=== PATIENT | male | born 1985 | race Caucasian/White ===

== ENCOUNTER 2016-07-16 00:10 | Inpatient (IN) | payer MEDICAID ==
[2016-07-16 03:54] VITALS: BP 120/67
[2016-07-16] MEDS ORDERED: D5-0.9%NS 1,000 ML IV SCH (04:15)
[2016-07-16 05:31] LABS: % BASOPHILS 0.3 % (0.0-2.0); % EOSINOPHILS 3.9 % (0.0-5.0); % LYMPHOCYTES 18.4 % (20.0-50.0); % MONOCYTES 7.5 % (2.0-10.0); % NEUTROPHILS 69.9 % (40.0-80.0); HEMATOCRIT 40.9 % (39.0-49.0); HEMOGLOBIN 13.6 gm/dL (13.2-17.3); MEAN CELL VOLUME 88.2 fl (80-99); MEAN CORPUSCULAR HEMOGLOBIN 29.4 pg (26.0-30.0); MEAN CORPUSCULAR HGB CONC 33.3 pg (28.0-36.0); MEAN PLATELET VOLUME 8.6 fl; NEUTROPHILE ABSOLUTE 6.1 Th/cmm (1.8-8.0); PLATELET COUNT 197 Th/cmm (150-400); RED BLOOD COUNT 4.64 Mil/cmm (4.30-5.70); RED CELL DISTRIBUTION WIDTH 12.5 % (11.5-20.0); WHITE BLOOD COUNT 8.7 Th/cmm (4.8-10.8)
[2016-07-16 05:53] LABS: ALB/GLOB RATIO 1.4 (1.0-1.8); ALKALINE PHOSPHATASE 70 U/L (34-104); ANION GAP 4.9 (7.0-16.0); BILIRUBIN,TOTAL 1.1 mg/dL (0.3-1.0); BUN - UREA NITROGEN 17 mg/dL (7-25); BUN/CREATININE RATIO 18.9; CALCIUM SERUM 9.5 mg/dL (8.6-10.3); CARBON DIOXIDE 27.7 mEq/L (21.0-31.0); CHLORIDE 105 mEq/L (98-107); CREATININE - SERUM 0.9 mg/dL (0.7-1.3); GLUCOSE 113 mg/dL (70-105); POTASSIUM SERUM 3.6 mEq/L (3.5-5.1); SGOT 16 U/L (13-39); SGPT/ALT 15 U/L (7-52); SODIUM SERUM 134 mEq/L (136-145)
[2016-07-16 05:57] LABS: INR 1.09 (0.5-1.4); PROTHROMBIN TIME (TEST) 10.9 SECONDS (9.5-11.5)
[2016-07-16] MEDS ORDERED: Morphine Sulfate 2 mg/mL 1mL Syr IVP PRN (06:33)
[2016-07-16] MEDS ORDERED: Meperidine 50 mg/mL 1mL Syr ONE (07:59)
[2016-07-16] MEDS ORDERED: Midazolam 1mg/ml 2 ml vial IV ONE (07:59)
[2016-07-16] MEDS ORDERED: Bupivacaine 0.25% W/Ep 10 mL Vial ONE (08:45)
[2016-07-16] MEDS ORDERED: Neostigmine 10mg/10mL Vial ONE (08:47)
[2016-07-16] MEDS ORDERED: Meperidine 25 mg/mL 1mL Syr IVP PRN (09:25)
[2016-07-16] MEDS ORDERED: Lactated Ringer 1,000 ML IV SCH (09:30)
[2016-07-16] MEDS ORDERED: Meperidine 25 mg/mL 1mL Syr ONE ×2 (09:32→09:52)
--- NOTE | 2016-07-16 10:53 | Operative Report ---
PREOPERATIVE DIAGNOSES: 1. Acute appendicitis. 2. Compulsive obsessive disorder. POSTOPERATIVE DIAGNOSES: 1. Acute appendicitis. 2. Compulsive obsessive disorder. OPERATION DONE: Laparoscopic appendectomy. SURGEON: Maulik Jones M.D. ANESTHESIA: General. ANESTHESIOLOGIST: Chandra Matias M.D. INDICATIONS FOR SURGERY: Abdominal pain x [address] scan showing acute appendicitis. So examination also confirms this. Informed consent discussed with the patient regarding the possibility of complications including infection, bleeding, postoperative adhesions, abscess, complications from anesthesia, DVT, etc. The patient understands. OPERATIVE FINDINGS: Inflamed appendix with no perforation. ESTIMATED BLOOD LOSS: 2 mL. DESCRIPTION OF PROCEDURE: The patient was given general anesthesia. The abdomen was prepped with ChloraPrep and draped in appropriate manner. An infraumbilical incision was made along the skin line. A Veress needle was inserted. Insufflation of CO2 was carried successfully. A Veress needle was inserted. Insufflation of CO2 was carried out successfully. A 10 mm trocar was placed over this. The scope was introduced. There was good visualization of the intra-abdominal cavity. HISTORY OF PRESENT ILLNESS: A 5 mm trocar was placed in the lower abdomen at the midline and another 12 mm trocar was placed in the left flank. The operating table was lowered at the head and turned to the left side. The appendix was easily identified and was found to the inflamed, but with no perforation. The mesoappendix was serially transected utilizing EnSeal with good hemostasis. The base of the appendix was reached. GI instrument was then used to transect the appendix at the base. Following this, the staple line was identified and no bleeding site was noted. The appendix was removed in Endobag. The trocar sites were injected with 0.5% Marcaine with epinephrine and the incision was closed with mercedes, except on the left flank incision. Some oozing was controlled with 3-0 nylon. The patient tolerated the procedure well. [facility]# [id number]
--- NOTE | 2016-07-16 11:22 | Consultation ---
REFERRING PHYSICIAN: Dr. Huerta. REASON FOR CONSULTATION: Abdominal pain. Thank you for referring this patient to me. HISTORY OF PRESENT ILLNESS: This is a 30-year-old male who started having abdominal pain yesterday morning. In the afternoon, it became worse and because of the increasing pain, he went to [facility] Emergency Room. The WBC there was elevated at 15,000. The CT scan of the abdomen showed findings consistent with acute appendicitis. For insurance reason, the patient came to this facility. PAST MEDICAL HISTORY: He has had a diagnosis of compulsive disorder at age 14 and takes Prozac for this and Abilify. PHYSICAL EXAMINATION: Abdomen shows severe tenderness in the right lower quadrant with rebound. Peristalsis is decreased. IMPRESSION: Acute appendicitis. PLAN: Laparoscopic versus open appendectomy. Informed consent discussed with the patient and he understands the risks and complications associated with the operation and postoperative course. [facility]# [id number]
[2016-07-16] MEDS ORDERED: Albuterol Nebulizer 2.5mg/3mL IH PRN (16:16)
[2016-07-16] MEDS ORDERED: guaiFENesin 200 MG/10 ML UDC PO PRN (16:16)
[2016-07-16] MEDS ORDERED: Maalox 30 mL Cup PO PRN (16:16)
[2016-07-16] MEDS ORDERED: Ipratropium Neb 0.5 mg/2.5 mL UD IH PRN (16:16)
[2016-07-16] MEDS ORDERED: D5-0.45NS 1,000 ML IV SCH (16:30)
--- NOTE | 2016-07-16 17:15 | Internal Medicine Prog Note ---
Internal Medicine Subjective - Subjective Service Date: 07/16/16 ([id number]) Internal Medicine Objective - Results Result Diagrams: 07/16/16 05:23 07/16/16 05:23 Recent Labs: Laboratory Last Values WBC 8.7 Th/cmm (4.8-10.8) 07/16/16 05:23 RBC 4.64 Mil/cmm (4.30-5.70) 07/16/16 05:23 Hgb 13.6 gm/dL (13.2-17.3) 07/16/16 05:23 Hct 40.9 % (39.0-49.0) 07/16/16 05:23 MCV 88.2 fl (80-99) 07/16/16 05:23 MCH 29.4 pg (26.0-30.0) 07/16/16 05:23 MCHC Differential 33.3 pg (28.0-36.0) 07/16/16 05:23 RDW 12.5 % (11.5-20.0) 07/16/16 05:23 Plt Count 197 Th/cmm (150-400) 07/16/16 05:23 MPV 8.6 fl 07/16/16 05:23 Neutrophils % 69.9 % (40.0-80.0) 07/16/16 05:23 Lymphocytes % 18.4 % (20.0-50.0) L 07/16/16 05:23 Monocytes % 7.5 % (2.0-10.0) 07/16/16 05:23 Eosinophils % 3.9 % (0.0-5.0) 07/16/16 05:23 Basophils % 0.3 % (0.0-2.0) 07/16/16 05:23 PT 10.9 SECONDS (9.5-11.5) 07/16/16 05:23 INR 1.09 (0.5-1.4) 07/16/16 05:23 PTT (Actin FS) 26.5 SECONDS (26.0-38.0) 07/16/16 05:23 Sodium 134 mEq/L (136-145) L 07/16/16 05:23 Potassium 3.6 mEq/L (3.5-5.1) 07/16/16 05:23 Chloride 105 mEq/L (98-107) 07/16/16 05:23 Carbon Dioxide 27.7 mEq/L (21.0-31.0) 07/16/16 05:23 Anion Gap 4.9 (7.0-16.0) L 07/16/16 05:23 BUN 17 mg/dL (7-25) 07/16/16 05:23 Creatinine 0.9 mg/dL (0.7-1.3) 07/16/16 05:23 Est GFR ( Amer) > 60.0 ml/min 07/16/16 05:23 Est GFR (Non-Af Amer) > 60.0 ml/min 07/16/16 05:23 BUN/Creatinine Ratio 18.9 07/16/16 05:23 Glucose 113 mg/dL (70-105) H 07/16/16 05:23 Calcium 9.5 mg/dL (8.6-10.3) 07/16/16 05:23 Total Bilirubin 1.1 mg/dL (0.3-1.0) H 07/16/16 05:23 AST 16 U/L (13-39) 07/16/16 05:23 ALT 15 U/L (7-52) 07/16/16 05:23 Alkaline Phosphatase 70 U/L (34-104) 07/16/16 05:23 Total Protein 6.8 gm/dL (6.0-8.3) 07/16/16 05:23 Albumin 4.0 gm/dL (4.2-5.5) L 07/16/16 05:23 Globulin 2.8 gm/dL 07/16/16 05:23 Albumin/Globulin Ratio 1.4 (1.0-1.8) 07/16/16 05:23 - Physical Exam Vitals and I&O: Vital Signs Temp 97.6 F 07/16/16 15:56 Pulse 72 07/16/16 17:03 Resp 17 07/16/16 17:05 BP 114/54 07/16/16 15:56 Pulse Ox 99 07/16/16 17:03 Intake & Output 07/15/16 07/16/16 07/16/16 18:59 06:59 18:59 Intake Total 100 Balance 100 Weight (lbs) 182 lb Intake: Intake, IV Amount 100 Piperacillin Sodium/ 100 Tazobact 4.5 gm In Sodium Chloride 0.9% 100 ml @ 100 mls/hr IV Q8H [facility] Rx# :[id number] Active Medications: Current Medications Acetaminophen (Tylenol) 650 mg PO Q4HR PRN PRN Reason: Pain or Fever >101 Stop: 09/14/16 16:15 Al Hydrox/Mg Hydrox/Simethicone (Maalox) 30 ml PO Q6HR PRN PRN Reason: Constipation Stop: 09/14/16 16:15 Albuterol Sulfate (Albuterol 2.5mg/3ml Neb Ud) 2.5 mg IH Q2HR PRN PRN Reason: Shortness of Breath or Wheeze Stop: 09/14/16 16:15 Aripiprazole (Abilify) 15 mg PO DAILY AP PRN Reason: Protocol Stop: 09/15/16 08:59 Fluoxetine HCl (Prozac) 80 mg PO DAILY AP Stop: 09/15/16 08:59 Guaifenesin (Robitussin) 200 mg PO Q4HR PRN PRN Reason: Cough or Congestion Stop: 09/14/16 16:15 Dextrose/Sodium Chloride (D5-0.9%Ns) 1,000 mls @ 100 mls/hr IV .Q10H [facility] Stop: 09/14/16 04:14 Last Admin: 07/16/16 04:53 Dose: 100 mls/hr Piperacillin Sod/Tazobactam (Sod 4.5 gm/ Sodium Chloride) 100 mls @ 100 mls/hr IV Q8H [facility] Stop: 09/14/16 07:29 Last Infusion: 07/16/16 12:20 Dose: Infused Lactated Ringer's (Lactated Ringer) 1,000 mls @ 0 mls/hr IV .Q0M AP PRN Reason: TKO Stop: 07/17/16 09:29 Dextrose/Sodium Chloride (D5-0.45ns) 1,000 mls @ 100 mls/hr IV .Q10H AP Stop: 09/14/16 16:29 Ipratropium Ruffin (Atrovent Neb 0.5mg/2.5ml) 0.5 mg IH Q2HR PRN PRN Reason: Shortness of Breath or Wheeze Stop: 09/14/16 16:15 Meclizine HCl (Antivert) 25 mg PO DAILY PRN PRN Reason: Nausea / Vomiting Stop: 09/14/16 16:15 Meperidine HCl (Demerol) 25 mg IVP UD PRN PRN Reason: POST-OP PAIN Stop: 07/17/16 09:24 Morphine Sulfate (Morphine) 2 mg IVP Q4HR PRN PRN Reason: Pain (Moderate) Stop: 09/14/16 06:32 Ondansetron HCl (Zofran) 4 mg IV Q8H PRN PRN Reason: Nausea / Vomiting Stop: 09/14/16 16:15 Pantoprazole Sodium (Protonix) 40 mg PO BID AP Stop: 09/14/16 16:59 Zolpidem Tartrate (Ambien) 10 mg PO HS PRN PRN Reason: Insomnia Stop: 09/14/16 16:15 Internal Medicine Assmt/Plan - Assessment Assessment: ACUTE APPENDICITIS DEPRESSION
[2016-07-16] MEDS: Pantoprazole 40 mg EC Tab PO SCH (17:29)
--- NOTE | 2016-07-16 20:12 | History & Physical ---
CHIEF COMPLAINT: Abdominal pain. HISTORY OF PRESENT ILLNESS: This is a 30-year-old male who is a direct admission from [facility]. According to the patient, he has been having a 1-day history of abdominal pain associated with nausea and chills. The patient denied any fevers and denies any diarrhea. Due to insurance purposes, the patient is now here at [facility]. Apparently this morning, the patient had a laparoscopic appendectomy done by Dr. Willingham. PAST MEDICAL HISTORY: Hypercholesterolemia and depression. PAST SURGICAL HISTORY: None per the patient. ALLERGIES: No drug allergies. SOCIAL HISTORY: The patient denies any smoking, drinking or any illicit drug usage. FAMILY HISTORY: Noncontributory. REVIEW OF SYSTEMS: GENERAL: Denies any fever, any chills. CARDIOVASCULAR: Denies any chest pain. RESPIRATORY: Denies any shortness of breath. GASTROINTESTINAL: Denies any nausea, vomiting or any abdominal pain. GENITOURINARY: Denies any dysuria. All other systems are reviewed by me and are negative. PHYSICAL EXAMINATION: GENERAL: The patient is well developed, well nourished, in no acute distress. VITAL SIGNS: Temperature 97.6, heart rate 67, blood pressure 114/54, respirations 16, O2 92%. HEAD: Normocephalic, atraumatic. NECK: Supple. No mass. LUNGS: Clear bilaterally upon auscultation. HEART: Regular rate and rhythm. No murmurs, no gallops. SKIN: Intact, warm and dry to touch. ABDOMEN: Soft, nontender, nondistended. Positive bowel sounds in all 4 quadrants. LABORATORY DATA: WBC 8.7, H and H 13.6 and 40.8, platelets of 197. Sodium 134, potassium 3.6, chloride 105, carbon dioxide 27.7, BUN of 17, creatinine 0.9. ASSESSMENT: 1. Acute appendicitis. 2. Hypercholesterolemia. 3. Depression. PLAN: The patient to be admitted to the Med/Surg Unit. We will continue IV antibiotics, to monitor the patient's CBC and BMP. The patient will be on IV fluids for hydration. The patient is to use an incentive spirometer. Encourage the patient to ambulate. Pain management as needed. We will continue to monitor the patient. JOB# [id number]
[2016-07-17 07:20] LABS: % BASOPHILS 0.4 % (0.0-2.0); % LYMPHOCYTES 16.8 % (20.0-50.0); % MONOCYTES 6.6 % (2.0-10.0); % NEUTROPHILS 71.2 % (40.0-80.0); HEMATOCRIT 37.1 % (39.0-49.0); HEMOGLOBIN 12.9 gm/dL (13.2-17.3); MEAN CELL VOLUME 88.3 fl (80-99); MEAN CORPUSCULAR HEMOGLOBIN 30.7 pg (26.0-30.0); MEAN CORPUSCULAR HGB CONC 34.7 pg (28.0-36.0); MEAN PLATELET VOLUME 9.1 fl; NEUTROPHILE ABSOLUTE 5.8 Th/cmm (1.8-8.0); PLATELET COUNT 168 Th/cmm (150-400); RED CELL DISTRIBUTION WIDTH 12.6 % (11.5-20.0); WHITE BLOOD COUNT 8.1 Th/cmm (4.8-10.8)
[2016-07-17 07:50] LABS: ALB/GLOB RATIO 1.3 (1.0-1.8); ALKALINE PHOSPHATASE 57 U/L (34-104); ANION GAP 5.2 (7.0-16.0); BUN - UREA NITROGEN 8 mg/dL (7-25); CALCIUM SERUM 9.1 mg/dL (8.6-10.3); CARBON DIOXIDE 28.4 mEq/L (21.0-31.0); CHLORIDE 104 mEq/L (98-107); GLUCOSE 103 mg/dL (70-105); POTASSIUM SERUM 3.6 mEq/L (3.5-5.1); SGOT 15 U/L (13-39); SGPT/ALT 12 U/L (7-52); SODIUM SERUM 134 mEq/L (136-145)
[2016-07-17] MEDS: Pantoprazole 40 mg EC Tab PO SCH (08:44)
[2016-07-17] MEDS ORDERED: FLUOXETINE HCL 80 MG PO SCH (09:00)
[2016-07-17] MEDS ORDERED: Lactated Ringer 1,000 ML IV SCH (09:30)
--- NOTE | 2016-07-18 00:42 | Consultation ---
The patient was seen, chart is reviewed, discussed with staff. HISTORY OF PRESENT ILLNESS: The patient was seen in presence of his brother, he has a history of OCD, possible schizoaffective disorder. He said he is doing fairly well on medications, he is currently on Prozac and Abilify and when he stopped taking his medication, he becomes more paranoid and anxious. The patient reports occasionally restlessness, having occasional panic attacks, some difficulty being in the hospital, but he is not suicidal, having thoughts of harming himself or others. PAST PSYCHIATRIC HISTORY: Chronic mental illness. The patient is followed at [facility]. PAST MEDICAL HISTORY: As per H and P. PSYCHOSOCIAL HISTORY: The patient lives with his brother and his family is supportive. MENTAL STATUS EXAMINATION: The patient is cooperative, makes fair eye contact, his speech was also____ monotonous. The patient has some anxiety, no other visual hallucinations. Alert, awake, oriented x 3. No suicidal thoughts, no thoughts of harming self or others. ASSESSMENT: 1. OCD as per his report. 2. Schizoaffective disorder. PLAN: We will continue Prozac, Abilify at current doses, use Ativan 1 q. 6 hours p.r.n. anxiety. We will follow the patient while in the hospital. Thank you for your consultation. JOB# [id number]
--- NOTE | 2016-07-19 14:22 | Pathology Report ---
[id number] Collection date: 07/16/16 Surgeon: Dr. Silverio Willingham Specimen Description: Appendix. Gross Description: Received in formalin is an appendectomy specimen measuring 7 x 2 x 1 cm with the outer surface showing yellow fatty tissue. Sectioning reveals a 6 cm in length x 1 cm in diameter intact appendix with a small amount of induration and exudate noted. Chlorobutadiene Scrubber Operator sections are submitted in three cassettes labeled A1-A3. Microscopic Description: The histologic sections show an intact appendix with acute inflammation seen extending through the entire thickness of the wall and mucosa. The inflammatory cells consist of mostly neutrophils, consistent with acute appendicitis. Diagnosis: Acute appendicitis. [facility]# [id number] [facility]
== END 2016-07-17 14:00 | disposition home or self-care (01) | DRG 225 ==
LOC: MSI 03:15
PROVIDERS: ADMIT Internal Medicine; ATTEND Internal Medicine
PROC: 0DTJ4ZZ Resection of Appendix, Percutaneous Endoscopic Approach (ICD-10-PCS; principal; 2016-07-16)
DX: K35.80 Unspecified acute appendicitis (principal); F25.9 Schizoaffective disorder, unspecified; F32.9 Major depressive disorder, single episode, unspecified; F42.9 Obsessive-compulsive disorder, unspecified; E78.00 Pure hypercholesterolemia, unspecified
CPT/HCPCS: 36415-UA; 71010-TC; 80053-TC; 84443-TC; 85025-TC; 85610-TC; 87070-90; 87075-90; 87205-90; 88304-TC; 90782; 90799; 93005; 94760; J0696; J2001; J2250; J2543; J2704; J2710; J7042; X6024; X6026; X6258; Z7610